=== PATIENT | male | born 1995 | race Caucasian/White ===

== ENCOUNTER → 2018-12-12 | Outpatient (REF) | payer OTHER ==
[~2018-12-12] MED LIST: NO ROUTINE MEDS
[2018-12-12 17:35] LABS: PLATELET COUNT, AUTOMATED 252 K/uL (150-450)
== END ==
LOC: ZZSENDIN 17:22
PROVIDERS: ATTEND Family Medicine
DX: R59.0 Localized enlarged lymph nodes (principal)
CPT/HCPCS: 85025